=== PATIENT | male | born 1965 | race Hispanic/Latino ===

== ENCOUNTER 2017-10-19 19:36 | Emergency (ER) | payer BC ==
[2017-10-19 19:36] VITALS: BMI 30.7
[2017-10-19 19:59] VITALS: BP 142/80; PULSE 82; RESP 20; TEMP 98; O2SAT 98
--- NOTE | 2017-10-19 20:29 | C.PDOC ---
History Of Present Illness 52 year old male brought in by [facility] after his called 911 stating he had been drinking and not behaving himself. On arrival to the ER patient denies any complaints. Police report that patient had told them the seat belt in the police vehicle was hurting his chest. Patient has no medical/surgical Hx, no known allergies, and is not on any medication. Time Seen by Provider: 10/19/17 19:44 Chief Complaint (Nursing): Medical Clearance History Per: Patient History/Exam Limitations: no limitations Onset/Duration Of Symptoms: Hrs Current Symptoms Are (Timing): Gone Recent travel outside of the [place]: No Past Medical History Reviewed: Historical Data, Nursing Documentation, Vital Signs Vital Signs: Last Vital Signs Temp 98 F 10/19/17 19:46 Pulse 82 10/19/17 19:46 Resp 20 10/19/17 19:46 BP 142/80 10/19/17 19:46 Pulse Ox 98 10/19/17 20:36 - Medical History PMH: No Chronic Diseases Surgical History: No Surg Hx Family History: States: Unknown Family Hx - Social History Hx Alcohol Use: Yes (SOCIALLY; STATES USES VAPOR CIGARETTE AT PRESENT) Hx Substance Use: No - Immunization History Hx Tetanus Toxoid Vaccination: No Hx Influenza Vaccination: No Hx Pneumococcal Vaccination: No Review Of Systems Constitutional: Negative for: Fever, Chills Cardiovascular: Negative for: Chest Pain, Palpitations Respiratory: Negative for: Shortness of Breath Gastrointestinal: Negative for: Nausea, Vomiting Physical Exam - Physical Exam Appears: Non-toxic, No Acute Distress Skin: Normal Color, Warm, Dry Head: Atraumatic, Normacephalic Eye(s): bilateral: Normal Inspection Oral Mucosa: Moist Chest: Symmetrical, No Tenderness Cardiovascular: Rhythm Regular Respiratory: Normal Breath Sounds, No Rales, No Rhonchi, No Wheezing Gastrointestinal/Abdominal: Soft, No Tenderness Neurological/Psych: Oriented x3, Normal Speech Gait: Steady ED Course And Treatment O2 Sat by Pulse Oximetry: 98 (room air) Pulse Ox Interpretation: Normal Medical Decision Making Medical Decision Making: Patient appears clinically sober, is able to ambulate with a steady gait, is cleared for discharge. Disposition Counseled Patient/Family Regarding: Diagnosis - Disposition Disposition: LEFT W/O BEING SEEN - ER ONLY Disposition Time: 10:40 Condition: UNKNOWN Forms: [employer] (Samoan) - Clinical Impression Clinical Impression: Intoxication - Scribe Statement The provider has reviewed the documentation as recorded by the Scribe Kwadwo Rodriguez All medical record entries made by the Scribe were at my direction and personally dictated by me. I have reviewed the chart and agree that the record accurately reflects my personal performance of the history, physical exam, medical decision making, and the department course for this patient. I have also personally directed, reviewed, and agree with the discharge instructions and disposition.
== END 2017-10-19 19:46 | disposition left against medical advice (07) ==
LOC: C.ER 19:36
DX: F10.129 Alcohol abuse with intoxication, unspecified (principal)